=== PATIENT | female | born 1945 | race Caucasian/White ===

== ENCOUNTER → 2016-11-24 | Outpatient (CLI) | payer MEDICARE, OTHER ==
--- NOTE | ~2016-11-24 | PR ---
[place], [place] PROGRESS NOTE NAME: KEVIN GARCIA I [facility] [id number] UNIT #: [id number] ROOM: DOCTOR: NEHEMIAH HuangELIZABETH BIRTHDATE: [birth year] DOS: 11/24/2016 CHIEF COMPLAINT: Followup of open wound of the sacrum. HISTORY OF PRESENT ILLNESS: The elements: The location is the sacrum area. The quality is surgical and pressure related as well as diabetic. Severity is moderate to severe. Duration is over 2 years. Context: This is a 71-year-old female who underwent pilonidal cyst excision. Postoperatively had a wound infection, which left her with a very large gaping wound. She has been slowly healing since she has been in the Wound Clinic; however, we have been fairly stagnant for the last several weeks without any significant amount of change in wound measurements. She has missed 2 appointments in a row, has not been seen since October due to illness. She continues to use a collagen dressing at home without any changes as far as the wound goes. She does not have any significant changes in pain. There is no active bleeding, fevers or chills. PHYSICAL EXAMINATION: VITAL SIGNS: Stable. Temperature is 97.9, pulse is 78, respirations 18, blood pressure is 122/60. WOUND EXAMINATION: The measurements are bigger, 3.5 in length x 1.3 in width x 2 cm in depth. However, when you divert the measuring Q-tip slightly to the left, it does go deeper at 2.8 cm, which is how it has been all along for the past several months now. There is minimal fibrin and slough present in the base of the wound, the surrounding tissue is very moist and macerated. Debridement was done today. The tissue removed was fibrin, slough and subcutaneous tissue. There was a minimal amount of bleeding that was controlled with pressure. A curette was utilized. Cetacaine spray was used for topical anesthesia. Post-debridement measurements are unchanged. 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 We did want to try a wound VAC with [employer] to see if that would help prevent some of the problems that she had from the surrounding tissue and difficulty with the seal in the past. She is willing to try this wound VAC again; however, her insurance refuses to pay for it. She has been having multiple problems with illness as well as injury to her knee, now she has to go to physical therapy for rehabilitation. Her sugars have been uncontrolled, this needs to be further addressed as well with her primary care physician. The patient needs encouragement to follow a nutrition plan. In addition, due to her recent injury to her knee, she has been sitting at home more and less active, which is all contributing to poor wound healing. Since we have been on the same dressing for an extended period of months without any significant change in the measurements, I want to change it to a different dressing. We will see if her insurance will pay for Drawtex instead. Hopefully, we can revisit the wound VAC situation after we have some improvement in her diabetic control. Follow up in 1 week. [place], [place] PROGRESS NOTE NAME: RADHAKEVIN I UNIT #: [id number] ROOM: DOCTOR: ELIZABETH CERNA M.D. BIRTHDATE: [birth year] ELIZABETH CERNA MD CM:LUIZA [phone] ELIZABETH CERNA M.D. 11/29/16 1039 interface
== END | disposition home or self-care (01) ==
LOC: WOUNDCARE 03:01
DX: T81.89XD Other complications of procedures, not elsewhere classified, subsequent encounter (principal); E11.622 Type 2 diabetes mellitus with other skin ulcer; L98.422 Non-pressure chronic ulcer of back with fat layer exposed; E66.01 Morbid (severe) obesity due to excess calories; Y83.9 Surgical procedure, unspecified as the cause of abnormal reaction of the patient, or of later complication, without mention of misadventure at the time of the procedure

== ENCOUNTER → 2016-12-01 | Outpatient (CLI) | payer MEDICARE, OTHER ==
--- NOTE | ~2016-12-01 | PR ---
[place], [place] PROGRESS NOTE NAME: KEVIN GARCIA I [facility] #: [id number] UNIT #: [id number] ROOM: DOCTOR: NEHEMIAH HuangELIZABETH BIRTHDATE: [birth year] DOS: 12/01/2016 CHIEF COMPLAINT: Followup of open ulcer of the sacrum. HISTORY OF PRESENT ILLNESS: Elements: The location is the sacral coccyx area. The quality is surgical and also chronic and pressure related as well as diabetic. Severity is moderate to severe. Duration is over 2 years. Context: This is a 71-year-old female with morbid obesity, uncontrolled diabetes, who underwent pilonidal cyst excision postoperatively had wound infection, which left her with a very large gaping wound that has been gradually slowly healing; however, we have made very little progress in the past several weeks without much improvement. Last week, we had tried changing to a Drawtex dressing. We had wanted her to use the kind that fits into cavities. It should be a spiral shaped, however, she was given just a gauze type dressing which she says quite stiff and difficult to get into the cavity and is causing some irritation around the skin from rubbing so this has been uncomfortable for her. She has only used it for about a half the week at this time. No other specific complaints are noted. PHYSICAL EXAMINATION: VITAL SIGNS: Stable. Blood pressure is 124/64, pulse of 80, respirations 18, temperature is 98.2. WOUND EXAM: The wound is measuring exactly the same at 3.5 x 1.3 x 2 cm in depth. However, when you were off to the left, once again it still goes down quite deep at least 2.8 cm, which has not changed in any way. There is no overt necrotic tissue present and a debridement was not done due to the patient complains of discomfort. 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 She is working on getting her sugars down. She said they are in the 190 range, and she has had a few under the 100 range. We had hold off on the wound VAC, and she did not meet insurance criteria for this wound VAC device. She does have a followup appointment with a plastic surgeon in late December. Hopefully, we will get some more options after she sees him again. In the meantime, we will see if we can call the company to send her the dressings to see if we can exchange this for the spiral-shaped ones that fit into cavities as the other one she said did not seem to be absorbing much and it was quite stiff upon removal and putting into the wound and caused irritation around it, so we will find out what we can do about changing this. In the meantime, we will use a collagen for today and have her follow up in one week. [place], [place] PROGRESS NOTE NAME: KEVIN GARCIA I UNIT #: [id number] ROOM: DOCTOR: ELIZABETH CERNA M.D. BIRTHDATE: [birth year] ELIZABETH CERNA MD CM:LUIZA [phone] ELIZABETH CERNA M.D. 12/01/161851 interface
== END ==
LOC: WOUNDCARE 03:09
DX: T81.4XXD Infection following a procedure, subsequent encounter (principal); E11.622 Type 2 diabetes mellitus with other skin ulcer; L98.421 Non-pressure chronic ulcer of back limited to breakdown of skin; E66.01 Morbid (severe) obesity due to excess calories; Y83.9 Surgical procedure, unspecified as the cause of abnormal reaction of the patient, or of later complication, without mention of misadventure at the time of the procedure

== ENCOUNTER → 2017-01-19 | Outpatient (CLI) | payer MEDICARE, OTHER ==
--- NOTE | ~2017-01-19 | PR ---
[place], [place] PROGRESS NOTE NAME: [id number] UNIT #: [id number] ROOM: DOCTOR: NEHEMIAH HuangELIZABETH BIRTHDATE: [birth year] DOS: 01/19/2017 CHIEF COMPLAINT: An open ulcer at the sacral coccyx area. HISTORY OF PRESENT ILLNESS: The location is the sacral coccyx area. The quality is surgical on chronic secondary to diabetes and pressure. Severity is moderate to severe. Duration has been present after she underwent pilonidal cyst resection, suffered a postoperative wound infection, prolonged hospital stay for long-term acute care for this particular wound. Initially, the wound has been quite deep and large for several months to years. She presented to the wound clinic here this past summer. We had made some small progress in the depth of the wound; however, there remained one area on the left side of the wound that was quite deep to the left side of the wound, which went down to 3 cm; however, recently within the past several weeks. It has been getting regressing as far as the gains that we have made seem to have regressed and the measurements continue to be quite deep. She had been in consultation with Plastic Surgery, once at [facility] she was supposed to call back to see the surgeon. However, she did not make her followup appointment. She is unable to go. She said she could not ride in the car for that long because of the pain that she felt when she is sitting. I had also recommended a bone scan to be done. She initially had refused, but finally did agree to it. However, she had to reschedule this test and she still has not had it done yet. She did have an x-ray, which was unremarkable. Initially, we had requested or recommended she try the wound VAC therapy; however, she was quite adamant about not wanting to try it as she has had it before and had quite a difficult time maintaining a seal. She did eventually agree to try once again with the safe tech dressing; however, her insurance did not approve it secondary to uncontrolled diabetes, we have repeated her hemoglobin A1c. Just recently her hemoglobin A1c is actually even higher at 10.8. Hemoglobin A1c was high again over 10.6 or 10.9 I believe. In any case, the patient comes in today complaining of continued pain and discomfort. She is going to be following up in another wound center that is closer to her home for a second opinion and this is scheduled for tomorrow morning. She has no fevers or chills. OBJECTIVE: VITAL SIGNS: Stable. Blood pressure is 108/60, pulse is 60, respirations 18, temperature 98.3. The wound is measuring 5 x 1 x 4 cm in depth. It does appear to be fairly clean at the base of the wound. There is not any cellulitis. Due to the discomfort and pain that she has. I will hold off on debridement today. No debridement was done. ASSESSMENT AND PLAN: Chronic nonhealing surgical wound secondary to diabetes and morbid obesity. She will be following up in another wound center closer to her home. I would recommend for her to stay at this place, so she can get care as it is far for her to drive here and she has had to miss several appointments because of the drive. She is also scheduled for bone scan. We will keep the appointment here in case she somehow does not make it to this other wound clinic, but if she does agree to go to this other wound clinic that is closer to her, she can get the testing done there. We will continue with [facility]ero for now and have her follow up in the wound clinic closer to her home. This patient [place], [place] PROGRESS NOTE NAME: KEVIN GARCIA Trung UNIT #: [id number] ROOM: DOCTOR: ELIZABETH CERNA M.D. BIRTHDATE: [birth year] needs primary care physician to really help get her sugars under control. ELIZABETH CERNA MD CM:PNCHACHA [phone] ELIZABETH CERNA M.D. 01/19/17 1413 interface
== END ==
LOC: WOUNDCARE 02:25
DX: T81.89XD Other complications of procedures, not elsewhere classified, subsequent encounter (principal); E11.622 Type 2 diabetes mellitus with other skin ulcer; L98.491 Non-pressure chronic ulcer of skin of other sites limited to breakdown of skin; E66.01 Morbid (severe) obesity due to excess calories; Y83.8 Other surgical procedures as the cause of abnormal reaction of the patient, or of later complication, without mention of misadventure at the time of the procedure